=== PATIENT | female | born 1955 | race Caucasian/White ===

== ENCOUNTER 2016-06-26 10:49 | Emergency (ER) | payer OTHER, MEDICARE ==
[~2016-06-26] VITALS: Ht 177.8 cm; Wt 75.0 kg
[~2016-06-26 10:49] MED LIST: CLONAZEPAM0.5 M1 PO; CLONAZEPAM1 M1 PO; ESCI10TA PO; FLE10 PO; PREG100C PO; VIC5 PO; [UNRECOGNIZED DRUG - CODE] PO
[2016-06-26 11:16] VITALS: BP 124/72; PULSE 78; RESP 15; O2SAT 97
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
[2016-06-26 15:32] VITALS: BP 124/70; PULSE 70; RESP 15; O2SAT 97
== END 2016-06-26 15:33 | disposition home or self-care (01) ==
LOC: SED 10:49
DX: R51 Headache (principal); M79.7 Fibromyalgia